=== PATIENT | male | born 1990 | race Caucasian/White ===

== ENCOUNTER 2020-11-15 12:12 | Emergency (ER) | payer BC, SELFPAY ==
[2020-11-15 12:15] VITALS: BP 111/71; PULSE 89; RESP 21; TEMP 37; O2SAT 98; BMI 28.8
[2020-11-15 12:45] LABS: UTC Strep Screen (Rapid) Positive (Negative)
--- NOTE | 2020-11-15 12:53 | HMH.EDUTC ---
[facility] – [place] Disposition Clinical Impression: Strep throat Disposition: Home, Self-Care Condition on Discharge: Good Instructions: DI for Strep Throat, Strep Throat, Ondansetron Additional Instructions: *Monitor Temp, Over the counter Motrin or Tylenol as directed/as needed Tylenol every 4 hours and Motrin every 6 hours (as long as your family doctor has told you that you can take it) for fever or pain. and straight to ER if unable to lower temp less than 101.0 after medication given *Warm salt water gargles may help to soothe the throat *Throat Lozenges *Warm fluids like tea with honey may help to soothe the throat *Sleep elevated *Humidifier/Vaporizer *If you did not take Penicillin shot or was unable to, start taking antibiotic immediately and make sure that you take it for the FULL length of time although you should start to feel better in 24-48 hours *change toothbrush and toothpaste 24-48 hours after starting to take antibiotics so you do not reinfect yourself Monitor Temp. Tylenol and/or Ibuprofen as needed. ER if fever is no less than 101 despite alternating Tylenol and Ibuprofen * Encourage fluids, water, Gatorade, powerade, pedialyte if /toddler/or child *Cold fluids, popsicles and ice cream may feel good on his throat Follow up IMMEDIATELY for new or worsening symptoms or no Noticeable improvement over the next 48-72 hours. 911 for difficulty breathing or swallowing Prescriptions: Penicillin V Potassium 500 mg PO BID 10 Days #20 tab Transmission Status: Pending to [facility] Ondansetron [Zofran 4mg ODT] 4 mg PO TIDP PRN #6 tab PRN Reason: Vomiting Transmission Status: Pending to [facility] Referrals: Ben Muller MD [Primary Care Provider] - As needed Forms: Work/School Release Time of Disposition: 13:02 Medical Decision Making - Bob Inquiry Pt receiving controlled substance: No Bob was queried for this patient: No Vital Signs: 11/15/20 12:15 Temperature 98.6 F Temperature Source Oral Pulse Rate [Right Brachial] 89 Respiratory Rate 21 Blood Pressure [Right Arm] 111/71 Blood Pressure Mean [Right Arm] 84 Blood Pressure Source [Right Arm] Automatic Cuff Blood Pressure Position [Right Arm] Sitting 02 Sat by Pulse Oximetry 98 Oxygen Delivery Method Room Air - Lab Data Lab results reviewed: Yes: I reviewed the patient's lab results. Lab Results 11/15/20 12:38: Strep Scn Rapid Clinic Positive A [facility] – [place] HPI - General Stated complaint: chills,sore throat Time Seen by Provider: 11/15/20 12:53 Mode of Arrival: Ambulatory Source of Information: Patient Limitations: No Limitations Description of Symptoms (Recalled from Triage Doc. by RN): PATIENT C/O CHILLS, VOMITING, SORE THROAT, AND COUGH SINCE THIS MORNING HEENT Symptoms (Recalled from RN notes): Yes Resp Symptoms (Recalled from RN notes): Yes Skin Symptoms (Recalled from RN notes): No MS Symptoms (Recalled from RN notes): No Functional Status (Recalled from RN notes): WNL - History of Present Illness Provider Complaint: Patient state that today he has been having sore throat, body aches, chills and vomited this morning States that as the day went on he continued to feel worse so he came in to get checked - Related Data Previous Rx's Medication Instructions Recorded Ondansetron [Zofran 4mg ODT] 4 mg PO TIDP PRN #6 tab 11/15/20 Penicillin V Potassium 500 mg PO BID 10 Days #20 tab 11/15/20 Allergies Allergy/AdvReac Type Severity Reaction Status Date / Time No Known Allergies Allergy Verified 05/15/18 16:58 - Worker's Comp Is this a Worker's Comp case?: No [facility] History - Hepatitis A Screen Drug use history?: No High risk sexual behaviors?: No History of sexually transmitted infection?: No Currently employed?: No Childcare worker?: No Do you have indoor plumbing?: Yes Do you have electricity?: Yes Attestation statement:: This patient has been screened for Hepatitis A risk fac
[2020-11-15 13:08] VITALS: BP 111/71; PULSE 89; RESP 19; TEMP 37; O2SAT 98
== END 2020-11-15 13:08 | disposition home or self-care (01) ==
PROVIDERS: Emergency Provider Nurse Practitioner; PCP Internal Medicine Cardiovascular Disease
DX: J02.0 Streptococcal pharyngitis (principal)
CPT/HCPCS: 87880; 99202; G0463

== ENCOUNTER 2021-01-01 09:24 | Emergency (ER) | payer BC, SELFPAY ==
[2021-01-01] VITALS (7 sets, daily range): BP systolic 89–134; BP diastolic 48–92; PULSE 67–113; RESP 18–30; TEMP 37.4–37.6; O2SAT 96–99; BMI 29.2
--- NOTE | 2021-01-01 09:23 | ECG_ITS ---
APPROVED REPORT Exam: Resting ECG HR:106 bpm ECG Measurements Heart Rate 106 AXES [place] 116 P 38 QRSd 96 QRS 11 QT 346 T 62 QTc 459 Conclusion Sinus tachycardia Nonspecific T wave abnormality Abnormal ECG Electronically signed by : Ben Clifford, 01/01/2021 21:33:30
--- NOTE | 2021-01-01 09:32 | HMH.EDGENADL ---
ED Disposition Clinical Impression: Community acquired pneumonia Qualifiers: Laterality: left Lung location: lower lobe of lung Qualified Code(s): J18.9 - Pneumonia, unspecified organism Disposition: Home, Self-Care Condition on Discharge: Good Instructions: DI for Pneumonia -- Adult Additional Instructions: Additional instructions for PNEUMONIA: Take antibiotics as prescribed. See your physician as soon as possible for further evaluation. Return immediately if you have an uncontrollable fever greater than 102 degrees, difficulty breathing or shortness of breath, persistent vomiting, or severe chest pain. Prescriptions: Cefdinir [Omnicef 300mg Capsule] 300 mg PO BID #20 cap Transmission Status: Pending to [facility] Azithromycin [Zithromax 250mg tab] 250 mg PO DAILY #4 tab Transmission Status: Pending to [facility] Referrals: Cleve Muller [Primary Care Provider] - 3 days Forms: Work/School Release - Critical Care Critical Care Time: No Attestation: On 01/01/21, the high probability of a clinically significant, sudden or life threatening deterioration of the following system(s) required my full and direct attention, intervention and personal management. The time I documented below is in addition to time spent performing reported procedures but includes the following listed in this critical care notation. Medical Decision Making - Bob Inquiry Pt receiving controlled substance: No Vital Signs: 01/01/21 09:24 01/01/21 10:06 01/01/21 10:10 Temperature 99.4 F Temperature Source Oral Pulse Rate 67 79 Pulse Rate [Left] 113 H Respiratory Rate 18 20 25 H Blood Pressure 89/48 L 95/60 L Blood Pressure [Right Arm] 134/92 H Blood Pressure Mean 57 71 Blood Pressure Mean [Right Arm] 106 Blood Pressure Source [Right Arm] Automatic Cuff Blood Pressure Position [Right Arm] Supine 02 Sat by Pulse Oximetry 99 97 98 Oxygen Delivery Method Room Air 01/01/21 10:13 01/01/21 10:30 01/01/21 11:00 Temperature Temperature Source Pulse Rate 79 87 90 Pulse Rate [Left] Respiratory Rate 26 H 18 30 H Blood Pressure 106/72 L 116/73 113/69 Blood Pressure [Right Arm] Blood Pressure Mean 80 82 76 Blood Pressure Mean [Right Arm] Blood Pressure Source [Right Arm] Blood Pressure Position [Right Arm] 02 Sat by Pulse Oximetry Oxygen Delivery Method - Lab Data Lab Results 01/01/21 09:35: WBC 12.0 H, RBC 4.40 L, Hgb 13.7 L, Hct 39.7 L, MCV 90.2, MCH 31.2, MCHC 34.6, RDW 13.3, Plt Count 245, MPV 7.5, Neut % (Auto) 78.9, Lymph % (Auto) 13.6, Bremer % (Auto) 6.6, Eos % (Auto) 0.3, Baso % (Auto) 0.6, Neut # (Auto) 9.5 H, Lymph # (Auto) 1.6, Bremer # (Auto) 0.8, Eos # (Auto) 0.0, Baso # (Auto) 0.1 01/01/21 09:35: D-Dimer 0.27 01/01/21 09:35: Sodium 140, Potassium 3.9, Chloride 104, Carbon Dioxide 27, Anion Gap 12.9, BUN 13, Creatinine 1.10, Estimated Creat Clear 132, Estimated GFR 79, Est GFR ( Amer) 95, Glucose 106 H, Calcium 9.2, Troponin I < 0.01 01/01/21 09:35: TSH 1.50, Free T4 Index 2.2 L, Thyroxine (T4) 6.4, T3 Uptake 34 01/01/21 10:09: SARS-CoV-2 (PCR) Not detected, Influenza A Untype (PCR) Not detected, Influenza Type B (PCR) Not detected 01/01/21 10:09: Lactate 0.9 Result diagrams: 01/01/21 09:35 01/01/21 09:35 Orders (Tests/Meds): ED MEDICATIONS Generic Name Dose Route Start Last Admin Trade Name Freq PRN Reason Stop Dose Admin Ceftriaxone Sodium 1 gm/ 50 mls @ 100 mls/hr 01/01/21 11:30 01/01/21 11:29 Sodium Chloride IV 01/15/21 11:29 100 mls/hr Q24H SCAR Administration Protocol Azithromycin 500 mg/ Sodium 250 mls @ 250 mls/hr 01/01/21 11:30 Chloride IV 01/15/21 11:29 Q24H SCAR Protocol Discontinued Medications Generic Name Dose Route Start Last Admin Trade Name Freq PRN Reason Stop Dose Admin Sodium Chloride 1,000 mls @ 999 mls/hr 01/01/21 10:30 01/01/21 10:17 Sod Chlor 0.9% 1000ml Bag IV 01/01
--- NOTE | 2021-01-01 09:41 | XR_ITS ---
PROCEDURE: XR CHEST 2V CLINICAL HISTORY: cp Chest pain COMPARISON: No exams were available for comparison FINDINGS: The cardiomediastinal silhouette and pulmonary vascularity are within normal limits. Patchy density noted in the left lung base in the retrocardiac region consistent with an area infiltrate. No acute bony abnormalities. IMPRESSION: Left lower lobe pneumonia Dictated by: Arslan Chapman MD 01/01/2021 10:24 Arslan Chapman MD in [place] 01/01/2021 10:24
[2021-01-01 09:56] LABS: Basophils # 0.1 K/mm3 (0-0.2); Basophils % 0.6 % (0.1-2.0); Eosinophils % 0.3 % (0.1-12.0); Hematocrit 39.7 % (42.0-52.0); Hemoglobin 13.7 g/dL (14.1-18.0); Lymphocytes # 1.6 K/mm3 (0.7-4.5); Lymphocytes % 13.6 % (10-50); Mean Corpuscular HGB Conc 34.6 g/dL (31.8-35.4); Mean Corpuscular Hemoglobin 31.2 pg (27.0-31.2); Mean Corpuscular Volume 90.2 fl (80-94); Mean Platelet Volume 7.5 fl (7.4-10.4); Monocytes # 0.8 K/mm3 (0.1-1.0); Monocytes % 6.6 % (1.7-9.3); Neutrophils # 9.5 K/mm3 (1.8-7.8); Neutrophils % 78.9 % (37.0-80.0); Platelet Count 245 K/mm3 (142-424); Red Cell Distribution Width 13.3 % (11.5-17.5)
[2021-01-01 10:04] LABS: Chloride 104 mmol/L (98-107); Sodium 140 mmol/L (136-145)
[2021-01-01 10:05] LABS: Potassium 3.9 mmoL/L (3.5-5.1)
[2021-01-01 10:07] LABS: Blood Urea Nitrogen 13 mg/dl (9-20); Creatinine Clearance Estimated 132 mL/min (50-200); Estimated Glomerular Filt Rate 79 ml/min (>60); GFR (African American) 95 ML/MIN (>60)
[2021-01-01 10:08] LABS: Anion Gap 12.9 mEq/L (5-15); Calcium 9.2 mg/dl (8.4-10.2); Carbon Dioxide 27 mmol/L (22.0-30.0); Glucose 106 mg/dl (74-100)
[2021-01-01 10:13] LABS: D-Dimer 0.27 ug/mL (0.0-0.5)
[2021-01-01 10:20] LABS: Coronavirus 19, PCR Not Detected (NotDetected); Influenza A, PCR Not Detected (NotDetected); Influenza B, PCR Not Detected (NotDetected)
[2021-01-01 10:22] LABS: Troponin I < 0.01 ng/ml (0.00-0.034)
[2021-01-01 10:27] LABS: Free Thyroxine Index 2.2 ug/dL (5.93-13.13); T4 (Thyroxine) 6.4 ug/dl (5.53-11.0); Triiodothryronine (T3) Uptake 34 % (23.5-40.5)
[2021-01-01 10:35] LABS: Lactic Acid 0.9 mmol/L (0.7-2.1)
== END 2021-01-01 12:41 | disposition home or self-care (01) ==
PROVIDERS: Emergency Provider Emergency Medicine; PCP Internal Medicine
DX: J18.9 Pneumonia, unspecified organism (principal)
CPT/HCPCS: 71046; 80048; 83605; 84436; 84443; 84479; 84484; 85025; 85378; 87040; 93005; 96365; 96367; 96375; 99284; J0456; J2405; U0003

== ENCOUNTER → 2021-01-01 09:45 | Outpatient (CLI) | payer BC, SELFPAY ==
[2021-01-01 10:20] LABS: Basophils # 0.1 K/mm3 (0-0.2); Basophils % 0.5 % (0.1-2.0); Eosinophils % 0.2 % (0.1-12.0); Hematocrit 40.2 % (42.0-52.0); Hemoglobin 14.1 g/dL (14.1-18.0); Lymphocytes # 1.6 K/mm3 (0.7-4.5); Lymphocytes % 12.5 % (10-50); Mean Corpuscular Hemoglobin 31.1 pg (27.0-31.2); Mean Platelet Volume 7.8 fl (7.4-10.4); Monocytes # 0.8 K/mm3 (0.1-1.0); Monocytes % 6.7 % (1.7-9.3); Neutrophils # 9.9 K/mm3 (1.8-7.8); Neutrophils % 80.1 % (37.0-80.0); Platelet Count 249 K/mm3 (142-424); Red Blood Count 4.52 M/mm3 (4.60-6.20); Red Cell Distribution Width 13.4 % (11.5-17.5); White Blood Count 12.4 K/mm3 (4.8-10.8)
[2021-01-01 10:34] LABS: Chloride 104 mmol/L (98-107)
[2021-01-01 10:35] LABS: Sodium 139 mmol/L (136-145)
[2021-01-01 10:37] LABS: Alanine Aminotransferase 27 U/L (12-78); Aspartate Amino Transferase 25 U/L (17-59); Blood Urea Nitrogen 14 mg/dl (9-20); Estimated Glomerular Filt Rate 88 ml/min (>60); GFR (African American) 106 ML/MIN (>60)
[2021-01-01 10:38] LABS: Albumin Level 4.8 g/dl (3.5-5.0); Albumin/Globulin Ratio 1.7 (1.1-1.8); Alkaline Phosphatase 78 U/L (38-126); Bilirubin,Total 1.1 mg/dl (0.2-1.3); Calcium 9.2 mg/dl (8.4-10.2); Carbon Dioxide 25 mmol/L (22.0-30.0); Globulin 2.9 g/dL (1.3-3.2); Glucose 98 mg/dl (74-100); HDL Cholesterol 45 mg/dl (40-60); Total Protein,Serum 7.7 g/dl (6.3-8.2)
[2021-01-01 10:49] LABS: Direct LDL Cholesterol 76.11 mg/dL (100-129)
[2021-01-01 10:54] LABS: Cholesterol 136 mg/dl (140-200); Triglycerides 63 mg/dl (30-150); VLDL Cholesterol 13 mg/dL (0-40)
== END ==
PROVIDERS: Visit Provider Internal Medicine
DX: Z00.00 Encounter for general adult medical examination without abnormal findings (principal); F41.9 Anxiety disorder, unspecified; R53.83 Other fatigue
CPT/HCPCS: 80053; 80061; 85025

== ENCOUNTER → 2021-01-29 16:33 | Outpatient (CLI) | payer BC, SELFPAY ==
--- NOTE | 2021-01-29 16:42 | XR_ITS ---
PROCEDURE: XR CHEST 2V CLINICAL HISTORY: S/P LLL PNEUMONIA 01/01/21, LT CHEST PAIN COMPARISON: CR XR CHEST 2V from 01/01/2021 FINDINGS: The cardiomediastinal silhouette and pulmonary vascularity are within normal limits. Left lower lobe pneumonia has cleared. There is a small left pleural effusion. Remaining lungs are clear. No acute bony findings. IMPRESSION: Resolved left lower lobe pneumonia with small left pleural effusion noted Dictated by: Arslan Chapman MD 01/29/2021 16:59 Arslan Chapman MD in [place] 01/29/2021 16:59
== END ==
PROVIDERS: PCP Internal Medicine; Visit Provider Internal Medicine
DX: R07.9 Chest pain, unspecified (principal)
CPT/HCPCS: 71046

== ENCOUNTER 2022-01-08 15:40 | Emergency (ER) | payer BC, SELFPAY ==
[2022-01-08 16:00] VITALS: BP 119/76; PULSE 122; RESP 19; TEMP 38.7; O2SAT 98; BMI 29.9
[2022-01-08 16:22] LABS: UTC Strep Screen (Rapid) Negative (Negative)
--- NOTE | 2022-01-08 16:39 | HMH.EDUTC ---
[facility] – [place] Disposition Clinical Impression: Upper respiratory infection Qualifiers: URI type: unspecified viral URI Qualified Code(s): J06.9 - Acute upper respiratory infection, unspecified Disposition: Home, Self-Care Condition on Discharge: Good Instructions: DI for Viral Upper Respiratory Infection -- Adult Additional Instructions: covid swab was sent to lab, call tomorrow for results. self isolate until test results are known to be negative No sign of a bacterial infection. Likely viral. Viruses can take 7-14 days to run their course. Nasal saline and bulb syringe or nose Aisha to remove nasal drainage to help with nasal congestion. Hard to eat, drink, sleep with nasal congestion so important to keep this cleaned out. Monitor temp. Tylenol or Motrin as needed for pain or fever Encourage fluids, water, Gatorade, Powerade, Pedialyte if infant/toddler/child Warm salt water gargles Warm fluids Sore throat lozenges Sleep elevated Humidifier/vaporizer Follow-up immediately for new or worsening symptoms or no noticeable improvement over the next 48-72 hours. Referrals: Cleve Muller MD [Primary Care Provider] - Time of Disposition: 16:45 Medical Decision Making - Bob Inquiry Pt receiving controlled substance: No Vital Signs: 01/08/22 16:00 Temperature 101.7 F H Temperature Source Oral Pulse Rate [Left Brachial] 122 H Respiratory Rate 19 Blood Pressure [Left Arm] 119/76 Blood Pressure Mean [Left Arm] 90 Blood Pressure Source [Left Arm] Automatic Cuff Blood Pressure Position [Left Arm] Sitting 02 Sat by Pulse Oximetry 98 Oxygen Delivery Method Room Air - Lab Data Lab Results 01/08/22 16:13: Strep Scn Rapid Clinic Negative Orders (Tests/Meds): ED MEDICATIONS Discontinued Medications Generic Name Dose Route Start Last Admin Trade Name Freq PRN Reason Stop Dose Admin Acetaminophen 650 mg 01/08/22 16:17 01/08/22 16:20 Acetaminophen 325mg Tab PO 01/08/22 16:18 650 mg ONCE ONE Administration ORDERS Category Date Time Status Covid-19 Nasal PCR ([facility]) Routine Lab 01/08/22 16:08 Received Strep Screen Confirmation Stat Micro 01/08/22 16:13 Received [facility] [place] HPI - General Chief complaint: [facility] Stated complaint: chills,vomiting,sore throat cough Time Seen by Provider: 01/08/22 16:39 Mode of Arrival: Ambulatory Source of Information: Patient Limitations: No Limitations Description of Symptoms (Recalled from Triage Doc. by RN): PATIENT C/O VOMITING, COUGH, CHILLS, AND SORE THROAT HEENT Symptoms (Recalled from RN notes): Yes Resp Symptoms (Recalled from RN notes): Yes Skin Symptoms (Recalled from RN notes): No MS Symptoms (Recalled from RN notes): No Functional Status (Recalled from RN notes): WNL - History of Present Illness Provider Complaint: 32 yr old male presnets for cough,sore throat, chills,nasuea and body aches - Related Data Previous Rx's Medication Instructions Recorded Ondansetron [Zofran 4mg ODT] 4 mg PO TIDP PRN #6 tab 11/15/20 Penicillin V Potassium 500 mg PO BID 10 Days #20 tab 11/15/20 Azithromycin [Zithromax 250mg 250 mg PO DAILY #4 tab 01/01/21 tab] Cefdinir [Omnicef 300mg Capsule] 300 mg PO BID #20 cap 01/01/21 Allergies Allergy/AdvReac Type Severity Reaction Status Date / Time No Known Allergies Allergy Verified 05/15/18 16:58 - Worker's Comp Is this a Worker's Comp case?: No [facility] History - Hepatitis A Screen Attestation statement:: This patient has been screened for Hepatitis A risk factors. I have reviewed the patient's past medical history: Yes Other Surgeries: Yes: No Previous Surgery - Social History Smoking Status: Never smoker Tobacco Type: smokeless tobacco # Packs/Day (cigarettes): 0 Alcohol Intake: current Alcohol Intake Frequency:: holidays/special occasions only Occupational Status: other Housing: house Household Members: family Family Hx:: Hypertension ROS Obtained: Yes
[2022-01-08 16:45] VITALS: BP 119/76; PULSE 122; RESP 19; TEMP 38.7; O2SAT 98
== END 2022-01-08 16:49 | disposition home or self-care (01) ==
PROVIDERS: Emergency Provider Nurse Practitioner Family; PCP Internal Medicine
DX: J06.9 Acute upper respiratory infection, unspecified (principal); R68.83 Chills (without fever); R11.2 Nausea with vomiting, unspecified; R07.0 Pain in throat; R05.9 Cough, unspecified
CPT/HCPCS: 87880; 99212; C9803; G0463; U0003; U0005

== ENCOUNTER 2023-11-08 10:27 | Outpatient (CLI) | payer BC, SELFPAY ==
[2023-11-08 18:45] LABS: Microscopic, Urine URINE MICROSCOPIC (MICROSCOPIC)
[2023-11-08 19:10] LABS: Basophils # 0.1 K/mm3 (0-0.2); Basophils % 1.9 % (0.1-2.0); Eosinophils # 0.2 K/mm3 (0.0-0.4); Eosinophils % 3.3 % (0.1-12.0); Hematocrit 44.1 % (42.0-52.0); Hemoglobin 14.5 g/dL (14.1-18.0); Lymphocytes # 2.4 K/mm3 (0.7-4.5); Lymphocytes % 41.1 % (10-50); Mean Corpuscular Hemoglobin 31.3 pg (27.0-31.2); Mean Platelet Volume 8.6 fl (7.4-10.4); Monocytes # 0.4 K/mm3 (0.1-1.0); Monocytes % 6.3 % (1.7-9.3); Neutrophils # 2.7 K/mm3 (1.8-7.8); Neutrophils % 47.5 % (37.0-80.0); Platelet Count 242 K/mm3 (142-424); Red Blood Count 4.65 M/mm3 (4.60-6.20); Red Cell Distribution Width 14.1 % (11.5-17.5); White Blood Count 5.8 K/mm3 (4.8-10.8)
[2023-11-08 19:28] LABS: Appearance,Urine CLEAR (Clear); Bilirubin,Urine Negative (Negative); Blood, Urine Negative (Negative); Color,Urine YELLOW (Yellow); Glucose,Urine (UA) Negative (Negative); Ketones,Urine Negative (Negative); Leukocyte Esterase,Urine Negative (Negative); Nitrate,Urine Negative (Negative); PH,Urine 6.5 (5.0-8.5); Protein,Urine Negative (Negative); Specific Gravity, Urine <= 1.005 (1.005-1.030); Urobilinogen,Urine 0.2 EU/dl (0.2)
[2023-11-08 19:43] LABS: Erythrocyte Sedimentation Rate 8 mm/hr (0-15)
[2023-11-08 19:53] LABS: Bacteria,Urine Trace /lpf; RBC,Urine Occasional #/hpf (0-3); Squamous Epithelial Cell,Urine Occasional #/hpf (0-5); WBC,Urine Occasional #/hpf (0-3)
[2023-11-08 20:03] LABS: Alanine Aminotransferase 22 U/L (12-78); Albumin Level 4.9 g/dl (3.5-5.0); Albumin/Globulin Ratio 1.7 (1.1-1.8); Alkaline Phosphatase 62 U/L (38-126); Anion Gap 18.1 mEq/L (5-15); Aspartate Amino Transferase 30 U/L (17-59); Bilirubin,Total 1.2 mg/dl (0.2-1.3); Blood Urea Nitrogen 16 mg/dl (9-20); Calcium 9.8 mg/dl (8.4-10.2); Carbon Dioxide 26 mmol/L (22.0-30.0); Chloride 100 mmol/L (98-107); Chol/HDL Ratio 3.9 (1-3.5); Cholesterol 189 mg/dl (140-200); Estimated Glomerular Filt Rate 77 ml/min (>60); GFR (African American) 93 ML/MIN (>60); Globulin 2.9 g/dL (1.3-3.2); Glucose 80 mg/dl (74-100); HDL Cholesterol 48 mg/dl (40-60); Potassium 4.1 mmoL/L (3.5-5.1); Sodium 140 mmol/L (136-145); Total Protein,Serum 7.8 g/dl (6.3-8.2); Triglycerides 165 mg/dl (30-150); VLDL Cholesterol 33 mg/dL (0-40)
[2023-11-08 20:14] LABS: Direct LDL Cholesterol 97.53 mg/dL (100-129)
[2023-11-08 20:23] LABS: Free T4 (Free Thyroxine) 0.83 ng/dl (0.78-2.19)
[2023-11-08 20:24] LABS: 25-OH Vitamin D, Total 26.2 ng/mL (30-100)
[2023-11-08 20:39] LABS: Thyroid Stimulating Hormone 1.11 uIU/mL (0.465-4.68)
[2023-11-08 20:59] LABS: Vitamin B12 552 pg/mL (239-931)
[2023-11-08 21:01] LABS: Hemoglobin A1C 4.8 % (4.0-6.0)
[2023-11-08 21:15] LABS: C-Reactive Protein 0.5 mg/L (0-4)
== END 2023-11-08 23:59 | disposition home or self-care (01) ==
LOC: LAB.DROPOF 11-09 10:27
PROVIDERS: PCP Nurse Practitioner Family; Visit Provider Nurse Practitioner Family
DX: F41.9 Anxiety disorder, unspecified (principal); R53.83 Other fatigue; M10.9 Gout, unspecified; R03.0 Elevated blood-pressure reading, without diagnosis of hypertension; Z13.220 Encounter for screening for lipoid disorders; Z13.1 Encounter for screening for diabetes mellitus; M79.675 Pain in left toe(s); E78.1 Pure hyperglyceridemia; E55.9 Vitamin D deficiency, unspecified; Z79.899 Other long term (current) drug therapy
CPT/HCPCS: 80053; 80061; 81001; 82306; 82607; 83036; 84439; 84443; 84550; 85025; 85651; 86140; 87086

== ENCOUNTER 2024-11-25 11:32 | Outpatient (CLI) | payer BC, SELFPAY ==
--- NOTE | 2024-11-25 11:35 | XR_ITS ---
FINAL REPORT CLINICAL HISTORY: cough COMPARISON: 01/29/2021 FINDINGS: 2 views of the chest were obtained . The heart is normal in size. The mediastinum is within normal limits. The lungs are clear. There is no pneumothorax. Osseous structures are unremarkable. IMPRESSION: No acute cardiopulmonary process. Reviewed, Interpreted and Dictated by King Ramos MD Transcribed by Ana Luisa Barcenas Authenticated and [facility]
== END 2024-11-25 23:59 | disposition home or self-care (01) ==
LOC: RAD 11:33
PROVIDERS: PCP Internal Medicine; Visit Provider Student in an Organized Health Care Education/Training Program
DX: R05.9 Cough, unspecified (principal)
CPT/HCPCS: 71046